=== PATIENT | female | born 1945 | race American Indian/Alaskan Native ===

== ENCOUNTER 2020-12-02 20:52 | Emergency (ER) | payer MEDICARE ==
[2020-12-02 22:11] LABS: Basophils # (Auto) 0.1 K/mm3 (0.0-0.1); Basophils % (Auto) 0.9 % (0.0-1.8); Eosinophils # (Auto) 0.1 K/mm3 (0.0-0.4); Eosinophils % (Auto) 1.5 % (0.0-4.3); Hemoglobin 9.6 gm/dl (10.1-14.3); Lymphocytes # (Auto) 2.6 K/mm3 (1.2-5.4); Lymphocytes % (Auto) 43.2 % (13.4-35.0); Mean Corpuscular HGB Conc 33 % (30-34); Mean Corpuscular Volume 91 fl (79-97); Monocytes # (Auto) 0.5 K/mm3 (0.0-0.8); Monocytes % (Auto) 8.5 % (0.0-7.3); Platelet Count 202 K/mm3 (140-440); Red Blood Count 3.17 M/mm3 (3.65-5.03); Red Cell Distribution Width 15.4 % (13.2-15.2)
--- NOTE | 2020-12-03 01:13 | Emergency Department Report ---
HPI - General Chief Complaint: Dizziness Time Seen by Provider: 12/03/20 00:42 - HPI HPI: This is a 74-year-old -[place] female presents to the emergency department with the complaint of 2 episodes of bright red blood rectal bleeding when having bowel movements earlier today. Then, on the way to the emergency department for evaluation of her rectal bleeding, the patient developed some midsternal chest pain and pain between her shoulder blades. She says that this was short-lived and the symptoms resolved upon presentation to the emergency d [facility]. She did not take anything for any of her symptoms prior to presentation today. The patient has a history of hypertension, GERD, TIA. She is not on any blood thinners but does take Plavix. The patient is currently under the care of a architecture faculty member, Dr. Jordan So. She says that she had a colonoscopy done in April 2019 that just showed some polyps, which were removed, and what sounds like diverticulosis. The patient has recently been evaluated by her architecture faculty member again, including an EGD and colonoscopy on 11/24, secondary to some unintended weight loss recently. She says that the EGD and colonoscopy did not show any reason for her weight loss or any new conditio ns. The patient also says that she recently had a CT scan of the abdomen and pelvis that did not show any acute process. She denies ever previously having rectal bleeding. ED Review of Systems ROS: Stated complaint: RECTAL BLEEDING Other details as noted in HPI Comment: All other systems reviewed and negative Constitutional: denies: chills, fever Eyes: denies: eye pain, vision change ENT: denies: ear pain, throat pain Respiratory: denies: cough, shortness of breath Cardiovascular: chest pain (Resolved). denies: palpitations Endocrine: unexplained weight loss Gastrointestinal: other (Bright red blood per rectum). denies: abdominal pain, vomiting Genitourinary: denies: dysuria, discharge Musculoskeletal: back pain (Resolved). denies: arthralgia Skin: denies: rash, lesions Neurological: denies: headache, weakness Physical Exam - Physical Exam Vital Signs: Vital Signs 12/02/20 20:58 Temperature 99.0 F Pulse Rate 86 Respiratory 20 Rate Blood Pressure 126/73 O2 Sat by Pulse 100 Oximetry Physical Exam: GENERAL: The patient is well-developed well-nourished. HENT: Normocephalic. Atraumatic. Patient has moist mucous membranes. EYES: Extraocular motions are intact. NECK: Supple. Trachea is midline. CHEST/LUNGS: Clear to auscultation. There is no respiratory distress noted. HEART/CARDIOVASCULAR: Regular. There is no tachycardia. There is no murmur. ABDOMEN: Abdomen is soft, nontender. Patient has normal bowel sounds. There is no abdominal distention. SKIN: Skin is warm and dry. NEURO: The patient is awake, alert, and oriented. The patient is cooperative. The patient has no focal neurologic deficits. Normal speech. MUSCULOSKELETAL: There is no tenderness or deformity. There is no limitation range of motion. RECTAL: Deferred BACK: No midline thoracic or lumbar tenderness to palpation. No CVA tenderness to palpation. ED Course Vital Signs 12/02/20 20:58 Temperature 99.0 F Pulse Rate 86 Respiratory 20 Rate Blood Pressure 126/73 O2 Sat by Pulse 100 Oximetry ED Medical Decision Making - Lab Data Result diagrams: 12/03/20 01:44 12/02/20 21:34 Lab Results 12/02/20 12/02/20 12/03/20 Range/Units 21:34 21:34 01:44 WBC 6.0 (4.5-11.0) K/mm3 RBC 3.17 L (3.65-5.03) M/mm3 Hgb 9.6 L (10.1-14.3) gm/dl Hct 29.0 L (30.3-42.9) % MCV 91 (79-97) fl MCH 30 (28-32) pg MCHC 33 (30-34) % RDW 15.4 H (13.2-15.2) % Plt Count 202 (140-440) K/mm3 Lymph % (Auto) 43.2 H (13.4-35.0) % [place] % (Auto) 8.5 H (0.0-7.3) % Eos % (Auto) 1.5 (0.0-4.3) % Baso % (Auto) 0.9 (0.0-1.8) % Lymph # (Auto) 2.6 (1.2-5.4) K/mm3 [place] # (Auto) 0.5 (0.0-0.8) K/mm3 Eos # (Auto) 0.1 (0.0-0.4) K/mm3 Baso # (Auto) 0.1 (0.0-0.1) K/mm3 Seg Neutrophils % 45.9 (40.0-70.0) % Seg Neutrophils # 2.7 (1.8-7.7) K/mm3 Sodium 138 (137-145) mmol/L Potassium 5.0 (3.6-5.0) mmol/L Chloride 101.3 (98-107) mmol/L Carbon Dioxide 29 (22-30) mmol/L Anion Gap 13 mmol/L BUN 29 H (7-17) mg/dL Creatinine 1.2 (0.6-1.2) mg/dL Estimated GFR 44 ml/min BUN/Creatinine Ratio 24 % Glucose 132 H (65-100) mg/dL Calcium 9.0 (8.4-10.2) mg/dL Troponin T < 0.010 (0.00-0.029) ng/mL 12/03/20 Range/Units 01:44 WBC (4.5-11.0) K/mm3 RBC (3.65-5.03) M/mm3 Hgb 10.1 (10.1-14.3) gm/dl Hct 30.3 (30.3-42.9) % MCV (79-97) fl MCH (28-32) pg MCHC (30-34) % RDW (13.2-15.2) % Plt Count (140-440) K/mm3 Lymph % (Auto) (13.4-35.0) % [place] % (Auto) (0.0-7.3) % Eos % (Auto) (0.0-4.3) % Baso % (Auto) (0.0-1.8) % Lymph # (Auto) (1.2-5.4) K/mm3 [place] # (Auto) (0.0-0.8) K/mm3 Eos # (Auto) (0.0-0.4) K/mm3 Baso # (Auto) (0.0-0.1) K/mm3 Seg Neutrophils % (40.0-70.0) % Seg Neutrophils # (1.8-7.7) K/mm3 Sodium (137-145) mmol/L Potassium (3.6-5.0) mmol/L Chloride (98-107) mmol/L Carbon Dioxide (22-30) mmol/L Anion Gap mmol/L BUN (7-17) mg/dL Creatinine (0.6-1.2) mg/dL Estimated GFR ml/min BUN/Creatinine Ratio % Glucose (65-100) mg/dL Calcium (8.4-10.2) mg/dL Troponin T (0.00-0.029) ng/mL - EKG Data -: EKG Interpreted by Me EKG shows normal: sinus rhythm, axis, intervals, QRS complexes, ST-T waves Rate: normal - EKG Data When compared to previous EKG there are: previous EKG unavailable Interpretation: normal EKG - Radiology Data Radiology results: image reviewed interpreted by me: Chest x-ray does not show any acute process. There are no pleural effusions, obvious pneumonia and there is no pneumothorax. No widened mediastinum. - Medical Decision Making This patient presents to the emergency department initially with a complaint of having 2 episodes of bright red blood seen during bowel movements. Then, on the way to the ER, patient had some midsternal chest discomfort and pain between the shoulder blades. However the symptoms resolved upon presentation. Patient had some blood work done through triage, as well as an EKG and a chest x-ray. She had been in the emergency department for about 3.5 hours prior to the chart being presented to me for evaluation. Her initial hemoglobin was 9.6. Normal metabolic panel. EKG did not have any morphology consistent with ST elevation myocardial infarction or any dysrhythmia. Chest x-ray did not show any pneumonia, pleural effusions, pneumothorax, widened mediastinum, or any other acute process. I had expected the patient to have a troponin given the triage complaint of chest discomfort, but it was accidentally ordered as a routine labs to be drawn at 3 AM and therefore had not been drawn yet. After seeing the patient I placed an order for a troponin and a repeat H/H. The troponin came back negative. The repeat hemoglobin was up to 10.1. Regarding the patient's chest discomfort, the symptoms did not return during her 4+ hour ED course. I would expect that the initial troponin would have some level of elevation had it been due to ACS. Once again, the EKG did not have any morphology consistent with ST elevation [place]. The patient is low on the heart and DEVON score. For all these reasons she appears safe for discharge home. Her contact information has been sent to [facility], and some one from their office should be contacting her shortly for close outpatient follow-up as per our hospitals low risk chest pain protocol. The patient understands to return to the closest emergency department immediately with any return of her chest pain. The patient has had a significant recent GI work-up including EGD, colonoscopy, CT of the abdomen and pelvis, all of which did not show any acute process. Patient says that she may have been diagnosed with diverticulosis in the past, which could be the reason for this recent painless bright red rectal bleeding. She has good outpatient follow-up with both primary care and GI. Critical Care Time: No Critical care attestation.: If time is entered above; I have spent that time in minutes in the direct care of this critically ill patient, excluding procedure time. ED Disposition Clinical Impression: Rectal bleeding Chest pain Qualifiers: Chest pain type: unspecified Qualified Code(s): R07.9 - Chest pain, unspecified Disposition: 01 HOME / SELF CARE / HOMELESS Is pt being admited?: No Condition: Stable Instructions: Rectal Bleeding, Nonspecific Chest Pain, Adult Additional Instructions: Please follow-up with your primary care physician and architecture faculty member in the next few days. Your most recent hemoglobin level today was 10.1. I am sending your contact information over to the [facility] [place], and someone from their office should be contacting you shortly for close outpatient follow-up. Just in case, I am giving you a referral for one of their air export coordinator, Dr. Green. Return to the emergency department with any worsening of your symptoms, new or concerning symptoms not addressed during this current emergency department visit, or with any acute distress. Referrals: JORDAN SO MD [Primary Care Provider] - 2-3 Days RIC GREEN MD [Staff Physician] - 2-3 Days Time of Disposition: 02:35 Heart Score - HEART Score History: Slightly suspicious EKG: Normal Age: > 65 Risk factors: 1-2 risk factors Troponin: < normal limit HEART Score: 3 - EKG Read Time Time EKG Completed: 20:53 EKG Read Time: 21:03 - Critical Actions Critical Actions: 0-3 pts:0.9-1.7%risk of adverse cardiac event.Candidate for discharge
--- NOTE | 2020-12-03 01:48 | XRay Report ---
CHEST 2 VIEWS INDICATION: CP. COMPARISON: None. FINDINGS: Support devices: None. Heart: Within normal limits. Lungs/Pleura: No acute air space or interstitial disease. No significant pleural effusion. Prior gr anulomatous exposure. IMPRESSION: No acute findings. Signer Name: Santos Houston MD Signed: 12/03/2020 1:43 AM Workstation Name: [id number]
[2020-12-03 02:02] LABS: Hematocrit 30.3 % (30.3-42.9); Hemoglobin 10.1 gm/dl (10.1-14.3)
[2020-12-03 03:02] VITALS: BP 123/71
--- NOTE | 2020-12-04 08:57 | Electrocardiograph Report ---
[facility] Test Date: 2020-12-02 Test Time: 20:53:10 Pat Name: JULISSA NUNEZ Department: Room: Gender: F Heat Curer: CHI : [id number] Requested By: KAVYA DON Order Number: [id number] Reading MD: Pierce Green Measurements Intervals [place] Rate: 70 P: 81 CA: 125 QRS: 68 QRSD: 72 T: 64 QT: 388 QTc: 420 Interpretive Statements Sinus rhythm No previous ECG available for comparison Electronically Signed On 12-04-2020 8:56:49 EDT by Pierce Green
== END 2020-12-03 02:50 | disposition home or self-care (01) ==
LOC: ED 20:52
DX: K62.5 Hemorrhage of anus and rectum (principal); R07.9 Chest pain, unspecified
CPT/HCPCS: 36415; 71046; 80048; 84484; 85014; 85018; 85025; 93005; 99283